=== PATIENT | male | born 1955 | race Caucasian/White ===

== ENCOUNTER → 2023-11-01 | Emergency (ER) | payer BC, OTHER ==
[~2023-11-01] MED LIST: LIDOCAINE 1% MPF 5 ML VIAL ONE; LIDOCAINE 2% W/EPI 1:200,000 MPF 20 ML VIAL IM ONE
--- OUTSIDE RECORDS SUMMARY | 2023-11-01 13:36 | XMS REPORT | Continuity of Care Document ---
Author Name Unknown Address [address] [facility] [place] [address] [facility] thconnect Address [address] [facility] [place] [address] Care Team Providers Care Job Placement Counselor Name Role Phone Jose Holloway NP Primary Care Physician [phone]- [phone] JOSE HOLLOWYA Attending Clinician Unavailab JOSE Doyle Attending Clinician Unavailab CHEN Robb Attending Clinician Unavailable 2, [facility] Attending Clinician Unavailable Doctor Unassigned, [place] Attending Clinician U MAULIK Calvo Attending Clinician Unavailable [facility] Attending Clinician Unavailable RACHEL FINNEGAN Attending Clinician Unagrey Finnegan MD, Rachel Mejía Attending Clinician [phone] ARIEL MCELROY Attending Clinician Unavailable BEULAH RODRIGES Attending Clinician Unavailable Payers Payer Name Policy Type Policy Number Effective Date Expirati on Date Source MEDICARE PART A \T\ B [id number] 2022 00:00:00 MEDICARE-PART B 5 [id number] 2022 00:00:00 BCBS 2 [id number] 2021 00:00:00 Problems Condition Name Condition Details Condition Category Status Onset Date Resolution Date Last Treatment Date Treating Clinician Comments Source Type 2 diabetes mellitus without complicati on, without long-term current use of insulin Type 2 diabetes mellitus without complicati on, without long-term current use of insulin Disease Active 2021-09 00:00: 00 [facility] Primary hypertensi on Primary hypertensi on Disease Active 2021-09 00:00: 00 [facility] No known active problems No known active problems Disease Yessica Dumont Allergies, Adverse Reactions, Alerts Allergy Name Allergy Type Status Severity Reaction(s) Onset Date Inactive Date Treating Clinician Comments Source NO KNOWN ALLERGIE S Drug Class Active [facility] Social History Social Habit Start Date Stop Date Quantity Comments Source [facility] of tobacco use Chews Tobacco [facility] Exposure to SARS-CoV-2 (event) Not sure Yessica medellin History of Social function 2023-07-29 00:00:00 2023-07-29 00:00:00 [facility] Alcohol intake 2023-07-29 00:00:00 2023-07-29 00:00:00 Current drinker of alcohol (finding) [facility] Tobacco use and exposure 2023-02-26 00:00:00 2023-02-26 00:00:00 User of smokeless tobacco [facility] Tobacco Comment 2023-02-26 00:00:00 2023-02-26 00:00:00 Patient chews Tobacco for 61 [facility] Alcohol Comment 2023-02-26 00:00:00 2023-02-26 00:00:00 socially [facility] Sex Assigned At 1955 00:00:00 1955 00:00:00 [facility] Smoking Status Start Date Stop Date Source Tobacco smoking consumption unknown [facility] Ex-smoker 2023-02-26 00:00:00 2023-02-26 00:00:00 [facility] Light tobacco smoker 2021-07-03 00:00:00 Yessica Dumont - External Medications Ordered Medication Name Filled Medication Name Start Date Stop Date Current Medication? Ordering Clinician Indication Dosage Frequency Signature (SIG) Comments Components Source Insulin Glargine (LANTUS SOLOSTAR U-100 INSULIN) 100 unit/mL (3 mL) injection 2022-09 00:00: 00 Yes [id number] Start 10 units daily sub-Q. Advance 2 units every 3 days, only if BG levels remain greater than 200. [facility] Insulin Glargine (LANTUS SOLOSTAR U-100 INSULIN) 100 unit/mL (3 mL) injection 2022-09 00:00: 00 Yes [id number] Start 10 units daily sub-Q. Advance 2 units every 3 days, only if BG levels remain greater than 200. [facility] glipiZIDE XL 10 mg 24 hr tablet 03-01 00:00: 00 Yes [id number] 10mg Take 1 tablet by mouth daily with breakfast. [facility] glipiZIDE XL 10 mg 24 hr tablet 03-01 00:00: 00 Yes [id number] 10mg Take 1 tablet by mouth daily with breakfast. [facility] glipiZIDE XL 10 mg 24 hr tablet 03-01 00:00: 00 Yes [id number] 10mg Take 1 tablet by mouth daily with breakfast. [facility] glipiZIDE XL 10 mg 24 hr tablet 03-01 00:00: 00 Yes [id number] 10mg Take 1 tablet by mouth daily with breakfast. [facility] glipiZIDE XL 10 mg 24 hr tablet 03-01 00:00: 00 Yes [id number] 10mg Take 1 tablet by mouth daily with breakfast. [facility] metoprolol ta-hydrochl orothiaz 50-25 mg per tablet 02-26 14:32: 02-26 00:00 :00 No 1{tbl} Take 1 tablet by mouth every morning. [facility] metoprolol ta-hydrochl orothiaz 50-25 mg per tablet 02-26 14:32: 02-26 00:00 :00 No 1{tbl} Take 1 tablet by mouth every morning. [facility] metoprolol ta-hydrochl orothiaz 50-25 mg per tablet 02-26 14:32: 17 02-26 00:00 :00 No 1{tbl} Take 1 tablet by mouth every morning. [facility] folic acid/multiv it-min/lute in (CENTRUM SILVER ORAL) 02-26 13:54: 51 Yes Take by mouth. [facility] ity [facility] aspirin 81 mg chewable tablet 02-26 13:54: 51 Yes 81mg Take 1 tablet by mouth in the morning. [facility] it[facility] folic acid/multiv it-min/lute in (CENTRUM SILVER ORAL) 02-26 13:54: 51 Yes Take by mouth. [facility] it[facility] aspirin 81 mg chewable tablet 02-26 13:54: 51 Yes 81mg Take 1 tablet by mouth in the morning. [facility] it[facility] folic acid/multiv it-min/lute in (CENTRUM SILVER ORAL) 02-26 13:54: 51 Yes Take by mouth. [facility] aspirin 81 mg chewable tablet 02-26 13:54: 51 Yes 81mg Take 1 tablet by mouth in the morning. [facility] folic acid/multiv it-min/lute in (CENTRUM SILVER ORAL) 02-26 13:54: 51 Yes Take by mouth. [facility] aspirin 81 mg chewable tablet 02-26 13:54: 51 Yes 81mg Take 1 tablet by mouth in the morning. [facility] folic acid/multiv it-min/lute in (CENTRUM SILVER ORAL) 02-26 13:54: 51 Yes Take by mouth. [facility] aspirin 81 mg chewable tablet 02-26 13:54: 51 Yes 81mg Take 1 tablet by mouth in the morning. [facility] folic acid/multiv it-min/lute in (CENTRUM SILVER ORAL) 02-26 13:54: 51 Yes Take by mouth. [facility] aspirin 81 mg chewable tablet 02-26 13:54: 51 Yes 81mg Take 1 tablet by mouth in the morning. [facility]/multiv it-min/lute in (CENTRUM SILVER ORAL) 02-26 13:54: 51 Yes Take by mouth. [facility] it[facility] aspirin 81 mg chewable tablet 02-26 13:54: 51 Yes 81mg Take 1 tablet by mouth in the morning. [facility] folic acid/multiv it-min/lute in (CENTRUM SILVER ORAL) 02-26 13:54: 51 Yes Take by mouth. [facility] aspirin 81 mg chewable tablet 02-26 13:54: 51 Yes 81mg Take 1 tablet by mouth in the morning. [facility] metoprolol succinate XL 50 mg 24 hr tablet 02-26 00:00: 00 Yes [id number] 50mg Take 1 tablet by mouth in the morning. [facility] metFORMIN 1,000 mg tablet 02-26 00:00: 00 Yes [id number] 1000mg Take 1 tablet by mouth in the morning and 1 tablet in the evening. [facility] atorvastati n 40 mg tablet 02-26 00:00: 00 Yes [id number] 40mg Take 1 tablet by mouth at bedtime. [facility] losartan 25 mg tablet 02-26 00:00: 00 Yes [id number] 25mg Take 1 tablet by mouth in the morning. [facility] metoprolol succinate XL 50 mg 24 hr tablet 02-26 00:00: 00 Yes [id number] 50mg Take 1 tablet by mouth in the morning. [facility] metFORMIN 1,000 mg tablet 02-26 00:00: 00 Yes [id number] 1000mg Take 1 tablet by mouth in the morning and 1 tablet in the evening. [facility] atorvastati n 40 mg tablet 02-26 00:00: 00 Yes [id number] 40mg Take 1 tablet by mouth at bedtime. [facility] losartan 25 mg tablet 02-26 00:00: 00 Yes [id number] 25mg Take 1 tablet by mouth in the morning. [facility] metoprolol succinate XL 50 mg 24 hr tablet 02-26 00:00: 00 Yes [id number] 50mg Take 1 tablet by mouth in the morning. [facility] metFORMIN 1,000 mg tablet 2022-0 20 00:00: 00 Yes [id number] 1000mg Take 1 tablet by mouth in the morning and 1 tablet in the evening. [facility] atorvastati n 40 mg tablet 2022-0 20 00:00: 00 Yes [id number] 40mg Take 1 tablet by mouth at bedtime. [facility] losartan 25 mg tablet 2022-0 20 00:00: 00 Yes [id number] 25mg Take 1 tablet by mouth in the morning. [facility] metoprolol succinate XL 50 mg 24 hr tablet 2022-0 02-26 00:00: 00 Yes [id number] 50mg Take 1 tablet by mouth in the morning. [facility] metFORMIN 1,000 mg tablet 0 02-26 00:00: 00 Yes [id number] 1000mg Take 1 tablet by mouth in the morning and 1 tablet in the evening. [facility] atorvastati n 40 mg tablet 2022-0 02-26 00:00: 00 Yes [id number] 40mg Take 1 tablet by mouth at bedtime. [facility] losartan 25 mg tablet 0 02-26 00:00: 00 Yes [id number] 25mg Take 1 tablet by mouth in the morning. [facility] metoprolol succinate XL 50 mg 24 hr tablet 2022-0 02-26 00:00: 00 Yes [id number] 50mg Take 1 tablet by mouth in the morning. [facility] metFORMIN 1,000 mg tablet 2022-0 02-26 00:00: 00 Yes [id number] 1000mg Take 1 tablet by mouth in the morning and 1 tablet in the evening. [facility] atorvastati n 40 mg tablet 2022-0 20 00:00: 00 Yes [id number] 40mg Take 1 tablet by mouth at bedtime. [facility] losartan 25 mg tablet 2022-0 20 00:00: 00 Yes [id number] 25mg Take 1 tablet by mouth in the morning. [facility] metoprolol succinate XL 50 mg 24 hr tablet 2022-0 20 00:00: 00 Yes [id number] 50mg Take 1 tablet by mouth in the morning. [facility] metFORMIN 1,000 mg tablet 2022-0 6-20 00:00: 00 Yes [id number] 1000mg Take 1 tablet by mouth in the morning and 1 tablet in the evening. [facility] atorvastati n 40 mg tablet 2022-0 6-20 00:00: 00 Yes [id number] 40mg Take 1 tablet by mouth at bedtime. [facility] losartan 25 mg tablet 2022-0 6-20 00:00: 00 Yes [id number] 25mg Take 1 tablet by mouth in the morning. [facility] metoprolol succinate XL 50 mg 24 hr tablet 2022-0 6-20 00:00: 00 Yes [id number] 50mg Take 1 tablet by mouth in the morning. [facility] metFORMIN 1,000 mg tablet 2022-0 6-20 00:00: 00 Yes [id number] 1000mg Take 1 tablet by mouth in the morning and 1 tablet in the evening. [facility] atorvastati n 40 mg tablet 2022-0 6-20 00:00: 00 Yes [id number] 40mg Take 1 tablet by mouth at bedtime. [facility] losartan 25 mg tablet 2022-0 6-20 00:00: 00 Yes [id number] 25mg Take 1 tablet by mouth in the morning. [facility] metoprolol succinate XL 50 mg 24 hr tablet 2022-0 6-20 00:00: 00 Yes [id number] 50mg Take 1 tablet by mouth in the morning. [facility] metFORMIN 1,000 mg tablet 2022-0 6-20 00:00: 00 Yes [id number] 1000mg Take 1 tablet by mouth in the morning and 1 tablet in the evening. [facility] atorvastati n 40 mg tablet 3-0 6-20 00:00: 00 Yes [id number] 40mg Take 1 tablet by mouth at bedtime. [facility] losartan 25 mg tablet 3-0 6-20 00:00: 00 Yes [id number] 25mg Take 1 tablet by mouth in the morning. [facility] metFORMIN 1,000 mg tablet 2022-0 4-06 00:00: 00 02-26 00:00 :00 No 1000mg Take 1 tablet by mouth in the morning and 1 tablet in the evening. [facility] metFORMIN 1,000 mg tablet 4-06 00:00: 00 02-26 00:00 :00 No 1000mg Take 1 tablet by mouth in the morning and 1 tablet in the evening. [facility] metFORMIN 1,000 mg tablet - 00:00: 00 02-26 00:00 :00 No 1000mg Take 1 tablet by mouth in the morning and 1 tablet in the evening. [facility] atorvastati n 40 mg tablet 4- 00:00: 00 02-26 00:00 :00 No 40mg Take 1 tablet by mouth at bedtime. [facility] atorvastati n 40 mg tablet - 00:00: 00 02-26 00:00 :00 No 40mg Take 1 tablet by mouth at bedtime. [facility] atorvastati n 40 mg tablet - 00:00: 00 02-26 00:00 :00 No 40mg Take 1 tablet by mouth at bedtime. [facility] METOPROLOL- HCTZ 50-25 MG oral Tablet 2021-09 09:18: 32 Yes 1{tbl} Take 1 tablet by mouth daily Yessica leavitt Losartan Potassium 25 MG oral Tablet 2021-09 00:00: 00 Yes [id number] 25mg Take 1 tablet (25 mg total) by mouth daily Yessica leavitt Metformin HCl 1000 MG oral Tablet 2021-09 00:00: 00 Yes [id number] 1000mg Take 1 tablet (1,000 mg total) by mouth in the morning and 1 tablet (1,000 mg total) in the evening. Take with meals. Yessica leavitt Tirzepatide (Mounjaro) 2.5 MG/0.5ML subcutaneou s Solution Pen-injecto r 2021-09 00:00: 00 Yes [id number] 2.5mg Inject 0.5 mL (2.5 mg total) into the skin once a week Yessica leavitt losartan 25 mg tablet 2021-09 00:00: 00 02-26 00:00 :00 No 25mg Take 1 tablet by mouth in the morning. [facility] losartan 25 mg tablet 2021-09 00:00: 00 02-26 00:00 :00 No 25mg Take 1 tablet by mouth in the morning. [facility] losartan 25 mg tablet 2021-09 00:00: 00 02-26 00:00 :00 No 25mg Take 1 tablet by mouth in the morning. [facility] Dulaglutide (Trulicity) 0.75 MG/0.5ML subcutaneou s Solution Pen-injecto r 2021-09 00:00: 00 08-27 00:00 :00 No [id number] .75mg Inject 0.75 mg into the skin once a week Yessica leavitt Trulicity 0.75 MG/0.5ML subcutaneou s Solution Pen-injecto r 2021-09 00:00: 00 08-27 00:00 :00 No [id number] ADMINISTER 0.75 MG UNDER THE SKIN 1 TIME A WEEK Yessica leavitt Metformin HCl 1000 MG oral Tablet 2021-09 00:00: 00 08-27 00:00 :00 No [id number] 1000mg Take 1 tablet (1,000 mg total) by mouth in the morning and 1 tablet (1,000 mg total) in the evening. Take with meals. Yessica leavitt Metoprolol Succinate 50 MG oral TABLET SR 24 HR 2021-09 00:00: 00 Yes Yessica leavitt metoprolol succinate XL 50 mg 24 hr tablet 2021-09 00:00: 00 02-26 00:00 :00 No 50mg Take 1 tablet by mouth in the morning. [facility] metoprolol succinate XL 50 mg 24 hr tablet 2021-09 00:00: 00 02-26 00:00 :00 No 50mg Take 1 tablet by mouth in the morning. [facility] metoprolol succinate XL 50 mg 24 hr tablet 2021-09 00:00: 00 02-26 00:00 :00 No 50mg Take 1 tablet by mouth in the morning. [facility] Losartan Potassium 25 MG oral Tablet 2020-09 08:39: 17 07-03 00:00 :00 No 25mg Take 25 mg by mouth daily Yessica Dumont METOPROLOL- HCTZ 50-25 MG oral Tablet 2020-09 08:08: 46 Yes 1{tbl} Take 1 tablet by mouth daily Yessica Dumont Losartan Potassium 25 MG oral Tablet 2020-09 00:00: 00 Yes [id number] 25mg Take 1 tablet (25 mg total) by mouth daily Yessica Dumont Metformin HCl 1000 MG oral Tablet 2020-09 00:00: 00 Yes [id number] 1000mg Take 1 tablet (1,000 mg total) by mouth 2 times daily (with meals) Yessica Dumont Dulaglutide (Trulicity) 0.75 MG/0.5ML subcutaneou s Solution Pen-injecto r 2020-09 00:00: 00 Yes [id number] .75mg Inject 0.75 mg into the skin once a week Yessica Dumont Losartan Potassium 25 MG oral Tablet 2020-09 00:00: 00 08-27 00:00 :00 No [id number] 25mg Take 1 tablet (25 mg total) by mouth daily Yessica Dumont - Externa l Metformin HCl 1000 MG oral Tablet 01-31 00:00: 00 07-03 00:00 :00 No TAKE 1 TABLET(100 0 MG) BY MOUTH TWICE DAILY WITH MEALS Yessica Dumont Immunizations Ordered Immunization Name Filled Immunization Name Date Status Comments Source SARS-COV-2 COVID-19 MODERNA 12+ YRS VACCINE 2020-11-12 00:00:00 Completed [facility] SARS-COV-2 COVID-19 MODERNA 12+ YRS VACCINE 2020-11-12 00:00:00 Completed [facility] SARS-COV-2 COVID-19 MODERNA 12+ YRS VACCINE 2020-11-12 00:00:00 Completed [facility] SARS-COV-2 COVID-19 MODERNA 12+ YRS VACCINE 2020-11-12 00:00:00 Completed [facility] SARS-COV-2 COVID-19 MODERNA 12+ YRS VACCINE 2020-11-12 00:00:00 Completed [facility] SARS-COV-2 COVID-19 MODERNA 12+ YRS VACCINE 2020-10-15 00:00:00 Completed [facility] SARS-COV-2 COVID-19 MODERNA 12+ YRS VACCINE 2020-10-15 00:00:00 Completed [facility] SARS-COV-2 COVID-19 MODERNA 12+ YRS VACCINE 2020-10-15 00:00:00 Completed [facility] SARS-COV-2 COVID-19 MODERNA 12+ YRS VACCINE 2020-10-15 00:00:00 Completed [facility] SARS-COV-2 COVID-19 MODERNA 12+ YRS VACCINE 2020-10-15 00:00:00 Completed [facility] SARS-COV-2 COVID-19 MODERNA 12+ YRS VACCINE Unknown Completed [facility] SARS-COV-2 COVID-19 MODERNA 12+ YRS VACCINE Unknown Completed [facility] SARS-COV-2 COVID-19 MODERNA 12+ YRS VACCINE Unknown Completed [facility] SARS-COV-2 COVID-19 MODERNA 12+ YRS VACCINE Unknown Completed [facility] SARS-COV-2 COVID-19 MODERNA 12+ YRS VACCINE Unknown Completed [facility] SARS-COV-2 COVID-19 MODERNA 12+ YRS VACCINE Unknown Completed [facility] SARS-COV-2 COVID-19 MODERNA 12+ YRS VACCINE Unknown Completed [facility] SARS-COV-2 COVID-19 MODERNA 12+ YRS VACCINE Unknown Completed [facility] Vital Signs Vital Name Observation Time Observation Value Comments S ource Systolic blood pressure 2023-07-29 19:35:00 139 mm[Hg] [facility] Diastolic blood pressure 2023-07-29 19:35:00 69 mm[Hg] [facility] Heart rate 2023-07-29 19:34:00 71 /min [facility] Body temperature 2023-07-29 19:34:00 37 Michelle [facility] Respiratory rate 2023-07-29 19:34:00 18 /min [facility] Body height 2023-07-29 19:34:00 190.5 cm [facility] Body weight 2023-07-29 19:34:00 127.234 kg [facility] BMI 2023-07-29 19:34:00 35.06 kg/m2 [facility] Oxygen saturation in Arterial blood by Pulse oximetry 2023-07-29 19:34:00 94 /min [facility] Systolic blood pressure 2023-07-29 19:30:00 139 mm[Hg] [facility] Diastolic blood pressure 2023-07-29 19:30:00 69 mm[Hg] [facility] Heart rate 2023-07-29 19:29:00 71 /min [facility] Body temperature 2023-07-29 19:29:00 37 Michelle [facility] Respiratory rate 2023-07-29 19:29:00 18 /min [facility] Body height 2023-07-29 19:29:00 190.5 cm [facility] Body weight 2023-07-29 19:29:00 127.234 kg [facility] BMI 2023-07-29 19:29:00 35.06 kg/m2 [facility] Oxygen saturation in Arterial blood by Pulse oximetry 2023-07-29 19:29:00 94 /min [facility] Systolic blood pressure 2023-02-26 18:51:00 140 mm[Hg] [facility] Diastolic blood pressure 2023-02-26 18:51:00 72 mm[Hg] [facility] Heart rate 2023-02-26 18:48:00 80 /min [facility] Body temperature 2023-02-26 18:48:00 36.5 Michelle [facility] Respiratory rate 2023-02-26 18:48:00 18 /min [facility] Body height 2023-02-26 18:48:00 185.4 cm [facility] Body weight 2023-02-26 18:48:00 125.737 kg [facility] BMI 2023-02-26 18:48:00 36.57 kg/m2 [facility] Oxygen saturation in Arterial blood by Pulse oximetry 2023-02-26 18:48:00 93 /min [facility] Systolic blood pressure 2022-08-27 15:14:00 151 mm[Hg] Yessica Seybo ld - External Diastolic blood pressure 2022-08-27 15:14:00 81 mm[Hg] Yessica Seybo ld - External Heart rate 2022-08-27 15:14:00 69 /min Kelse y Seybold - External Body temperature 2022-08-27 15:14:00 36.72 Michelle Yessica Seybold - External Respiratory rate 2022-08-27 15:14:00 14 /min Yessica Seybold - External Body height 2022-08-27 15:14:00 185.4 cm Prema ey Seybold - External Body weight 2022-08-27 15:14:00 131.543 kg Prema ey Seybold - External BMI 2022-08-27 15:14:00 38.26 kg/m2 Prema ey Seybold - External Oxygen saturation in Arterial blood by Pulse oximetry 2022-08-27 15:14:00 99 /min Yessica Seybo ld - External Systolic blood pressure 2021-07-03 13:07:00 140 mm[Hg] Yessica Seybo ld Diastolic blood pressure 2021-07-03 13:07:00 82 mm[Hg] Yessica Seybo ld Heart rate 2021-07-03 13:07:00 84 /min Kelse y Seybold Body temperature 2021-07-03 13:07:00 36.56 Michelle Yessica Seybold Respiratory rate 2021-07-03 13:07:00 14 /min Yessica Seybold Body height 2021-07-03 13:07:00 188 cm Prema ey Seybold Body weight 2021-07-03 13:07:00 120.112 kg Prema ey Seybold BMI 2021-07-03 13:07:00 34.00 kg/m2 Prema Dumont Oxygen saturation in Arterial blood by Pulse oximetry 2021-07-03 13:07:00 96 /min Yessica Estes ld Procedures Procedure Date / Time Performed Performing Clinician Source POCT HEMOGLOBIN A1C TEST 2023-07-29 00:00:00 Jose Holloway [facility] MICROALBUMIN URINE 2023-02-28 12:54:00 Chapis Holloway [facility] FREE T4 2023-02-28 12:52:00 Jose Holloway Un [facility] THYROID STIMULATING HORMONE 2023-02-28 12:52:00 Jose Holloway [facility] COMP. METABOLIC PANEL ([id number]) 2023-02-28 12:52:00 Jose Holloway [facility] LIPID PANEL ([id number])(TOTAL CHOLESTEROL, TRIGLYCERIDES, HDL) 2023-02-28 12:52:00 Jose Holloway [facility] CBC WITH DIFF 2023-02-28 12:52:00 [facility] GLYCOSYL[facility]EMO[facility] (A1C) 2023-02-28 12:52:00 Jose Holloway [facility] FREE T3 2023-02-28 12:52:00 Jose Holloway Un [facility] ASSIGNMENT OF BENEFITS 2023-02-26 18:32:23 Docto r Unassigned, [place] [facility] Encounters Start Date/Time End Date/Time Encounter Type Admission Type Attending Clinicians Care Facility Care Department Encounter ID Source 2023-11-27 09:30:00 2023-11-27 09:30:00 Outpatient R JOSE HOLLOWAY OGECHUKWU [facility] [id number] [facility] 2023-11-11 08:00:00 2023-11-11 08:00:00 Outpatient R [facility] [id number] [facility] 2023-07-29 13:30:00 2023-07-29 14:34:22 Office Visit Jose Holloway [facility] [id number] [facility] 2023-07-29 13:30:00 2023-07-29 14:34:22 Outpatient R JOSE HOLLOWAY OGECHUKWU [facility] [id number] [facility] 2023-07-29 11:30:00 2023-07-29 14:32:28 Office Visit Jose Holloway [facility] [id number] [facility] 2023-07-11 00:00:00 2023-07-11 00:00:00 Outpatient CHEN MILES [id number] Yessica Dumont 2023-02-28 08:00:00 2023-02-28 08:15:00 Ent Surgeon Visit 2, Adc Lab Jose Holloway [facility] [id number] [facility] 2023-02-28 08:00:00 2023-02-28 08:00:00 Outpatient R LUCY HOLLOWAYDickNimco HOLLOWAY JOSE [facility] [id number] [facility] 2023-02-26 14:00:00 2023-02-26 14:53:14 Outpatient R LUCY HOLLOWAYALDO JEWEL JOSE [facility] [id number] [facility] 2023-02-26 14:00:00 2023-02-26 14:53:14 Office Visit Jose Holloway [facility] 1..840.114 [id number] [facility] 2023-02-26 00:00:00 2023-02-26 00:00:00 Orders Only Doctor Unassigned, [place] [facility] 1..840.114 [id number] [id number] [facility] 2022-12-13 00:00:00 2022-12-13 00:00:00 Outpatient PREZASCHEN [id number] [facility] 2022-12-10 00:00:00 2022-12-10 00:00:00 Outpatient HUNDMAULIK Leavitt [id number] [facility] 2022-11-26 08:00:00 2022-11-26 08:00:00 Outpatient MAULIK PRESTON [id number] [facility] 2022-09-23 00:00:00 2022-09-23 00:00:00 Outpatient MAULIK PRESTON [id number] [facility] 2022-09-07 00:00:00 2022-09-07 00:00:00 Outpatient PREZASCHEN [id number] [facility] 2022-09-05 00:00:00 2022-09-05 00:00:00 Outpatient PREZASCHEN [id number] [facility] 2022-08-30 00:00:00 2022-08-30 00:00:00 Outpatient ABHISHEKLMAULIK [id number] [facility] 2022-08-27 10:15:00 2022-08-27 10:15:00 Outpatient CALEB SARMIENTO [id number] [facility] 2022-08-27 09:00:00 2022-08-27 09:00:00 Outpatient MAULIK PRESTON [id number] [facility] 2022-04-04 10:30:00 2022-04-04 10:30:00 Telemedici ne RACHEL FINNEGAN [id number] [facility] 2022-04-04 00:00:00 2022-04-04 00:00:00 Outpatient RACHEL FINNEGAN [id number] [facility] 2021-07-03 08:50:00 2021-07-03 08:50:00 Outpatient LAB90 YESSICA SARMIENTO [id number] [facility] 2021-07-03 08:01:27 2021-07-03 08:31:27 Office Visit Rachel Finnegan [id number] [facility] 2020-11-12 13:55:00 2020-11-12 13:55:00 Outpatient ARIEL WILLS [facility] [id number] [facility] 2020-10-15 14:00:00 2020-10-15 14:00:00 Outpatient ARIEL WILLS [facility] [id number] [facility] 2020-08-07 10:20:00 2020-08-07 10:20:00 Outpatient BEULAH FISHER [facility] [id number] [facility] Results Test Description Test Time Test Comments Results Result [facility] [id number] 19:56:00* Test Item Value Reference Range Interpretation Comme nts POCT HBA1C (test code = 4548-4) 10.3 % 4-6 A Lab Interpretation (test cod e = [id number]) Abnormal [facility]
[2023-11-01 14:18] LABS: Absolute Lymphocytes (CBC) 1.5 K/uL (0.7-4.9); Hematocrit 43.7 % (39.6-49.0); Lymphocytes % 16.8 % (15.3-44.8); MCV 87.4 fL (80-100); Platelets 199 thou/uL (152-406)
[2023-11-01 14:33] LABS: Potassium 3.9 mEq/L (3.5-5.1)
[2023-11-01 15:02] LABS: Protime INR 1.2
--- NOTE | 2023-11-01 15:54 | RAD REPORT ---
EXAM DESCRIPTION: RAD - Hand Right 3 View - 11/01/2023 3:02 pm CLINICAL HISTORY: laceration COMPARISON: No comparisons TECHNIQUE: Right hand, 3 views. FINDINGS: No fracture is identified. There is no dislocation or periosteal reaction noted. Scattered mild degenerative changes. Soft tissue irregularity and swelling along the fifth digit proximal phalanx and adjacent interdigita l web. IMPRESSION: Soft tissue abnormalities as above. No acute osseus abnormality. .
--- NOTE | 2023-11-01 16:00 | EDPHYS ---
Physician Documentation [facility] Name: Kamlesh Cedeño Age: 68 yrs Sex: Male : 1955 Arrival Date: 11/01/2023 Time: 13:33 Bed 7 Private MD: ED Physician Tom Kimble HPI: 11/01 13:50 This 68 yrs old Male presents to ER via Ambulatory with complaints of Laceration To cp Hand. 13:50 The patient has a laceration occurred at home, The injury was reached into hunting bag that contained knife. reports tetanus vaccination up to date. The laceration(s) is(are) located on the right hand. Onset: The symptoms/episode began/occurred just prior to arrival. Associated signs and symptoms: Pertinent positives: heavy bleeding, Pertinent negatives: dizziness, loss of consciousness, numbness distal to injury, suspected foreign body. Historical: - Allergies: 13:40 No Known Allergies; ll1 - PMHx: 13:40 Diabetes - NIDDM; Hypertension; A Fib (Hypertension); ll1 - Immunization history:: Adult Immunizations up to date, Last tetanus immunization: < 5 years ago. - Social history:: Smoking status: Patient reports use of chewing tobacco. ROS: 13:52 Constitutional: Negative for fever, cp 13:52 Cardiovascular: Negative for chest pain, 13:52 Respiratory: Negative for cough, shortness of breath, wheezing, 13:52 Skin: Positive for laceration(s), of the right hand, 13:52 Neuro: Negative for dizziness, numbness, weakness, 13:52 All other systems are negative, Exam: 14:20 Constitutional: The patient appears in no acute distress, alert, awake, cp non-diaphoretic, non-toxic, well developed, well nourished, 14:20 Head/Face: Normocephalic, atraumatic. cp 14:20 Chest/axilla: Inspection: normal, 14:20 Cardiovascular: Rate: normal, 14:20 Respiratory: the patient does not display signs of respiratory distress, Respirations: normal, no use of accessory muscles, no retractions, labored breathing, is not present, Breath sounds: are clear throughout, no decreased breath sounds, no stridor, no wheezing, 14:20 Musculoskeletal/extremity: Extremities: noted in the right hand: ROM: full active range of motion, Perfusion: the extremity is normally perfused throughout, Sensation intact. 14:20 Skin: injury, laceration(s), the wound is approximately 2 cm(s), of the dorsal side right hand between fourth and fifth fingers, that can be described as clean, no foreign body, linear, with moderate bleeding, Vital Signs: 13:38 BP 153 / 81; Pulse 82; Resp 18; Temp 97.5; Pulse Ox 94% on R/A; Weight 127.01 kg; ll1 Height 6 ft. 2 in. ; Pain 0/10; 15:18 BP 136 / 81; ld1 13:38 Body Mass Index 35.95 (127.01 kg, 187.96 cm) ll1 13:38 Pain Scale: Adult ll1 Laceration: 15:18 Wound Repair of 2cm ( 0.8in ) subcutaneous laceration to dorsal side right hand between cp fourth and fifth fingers. Linear shaped.. Distal neuro/vascular/tendon intact. Anesthesia: Wound infiltrated with 4 mls of 2% lidocaine. Wound prep: Moderate cleansing by me, Wound irrigation by me. Skin closed with 3 4-0 Prolene using interrupted sutures and sterile technique. Dressed with 4x4's, coban. Patient tolerated well. MDM: 13:42 Patient medically screened. 14:00 Differential diagnosis: superficial laceration, tendon injury, vascular injury. 16:00 Data reviewed: vital signs, nurses notes, radiologic studies, plain films. cp 16:00 I considered the following discharge prescriptions or medication management in the emergency department Medications were administered in the Emergency Department. See MAR. Independent interpretation of the following test(s) in the Emergency Department X-Ray: My interpretation is images of right hand negative for fracture. Care significantly affected by the following chronic conditions: Diabetes, Hypertension. Counseling: I had a detailed discussion with the patient and/or guardian regarding the historical points, exam findings, and any diagnostic results supporting the discharge/admit diagnosis, lab results, radiology results, the need for outpatient follow up, a family practitioner, to return to the emergency department if symptoms worsen or persist or if there are any questions or concerns that arise at home. Response to treatment: the patient's symptoms have markedly improved after treatment, and as a result, I will discharge patient. 11/01 13:45 Order name: Basic Metabolic Panel; Complete Time: 14:52 11/01 14:52 Interpretation: Normal except: GLUC 266. cp 11/01 13:45 Order name: CBC with Diff; Complete Time: 14:52 cp 11/01 14:53 Interpretation: Reviewed. cp 11/01 13:45 Order name: PT-INR; Complete Time: 15:13 cp 11/01 15:13 Interpretation: Reviewed. cp 11/01 13:45 Order name: Ptt, Activated; Complete Time: 15:13 cp 11/01 15:01 Order name: Hand Right 3 View; Complete Time: 15:59 EDMS 11/01 16:00 Interpretation: Report reviewed. cp 11/01 13:45 Order name: Labs collected and sent; Complete Time: 13:58 cp 11/01 13:54 Order name: Dressing - Wound; Complete Time: 14:04 cp 11/01 13:54 Order name: Gloves, Sterile; Complete Time: 14:04 cp 11/01 13:54 Order name: Setup Suture Tray; Complete Time: 13:59 cp Administered Medications: 13:58 Not Given (Patient Refused): fentanyl (pf)25 mcg IVP once ld1 Disposition Summary: 11/01/23 16:00 Discharge Ordered Notes: Location: Home cp Problem: new cp Symptoms: have improved cp Condition: Stable cp Diagnosis - Laceration without foreign body of right hand, initial encounter cp Followup: cp - With: Private Physician - When: 10 - 14 days - Reason: Staple/Suture removal Discharge Instructions: - Discharge Summary Sheet cp - Laceration Care, Adult cp - Sutured Wound Care cp Forms: - Medication Reconciliation Form cp - Thank You Letter cp - Antibiotic Education cp - Prescription Opioid Use cp - Patient Portal Instructions cp - Leadership Thank You Letter cp Prescriptions: - Cephalexin 500 mg Oral Capsule - take 1 capsule ORAL route every 8 hours for 10 days; 30 capsule; Refills: 0, cp Product Selection Permitted - Ibuprofen 800 mg Oral Tablet - take 1 tablet ORAL route every 8 hours As needed take with food; 30 tablet; cp Refills: 0, Product Selection Permitted Signatures: Dispatcher [employer] EDMS Wai Madsen PA PA cp Lewis, Lynsay RN RN ll1 Gladys Tiwari RN RN ld1 Corrections: (The following items were deleted from the chart) 15:01 13:46 Hand Left 3 View+RAD.RAD.BRZ ordered. EDMS EDMS 15: 13:50 The laceration(s) is(are) located on the left hand, cp cp 15: 13:52 Skin: Positive for laceration(s), of the left hand, cp cp
--- NOTE | 2023-11-01 16:00 | ER ---
Nurse's Notes [facility] Name: Kamlesh Cedeño Age: 68 yrs Sex: Male : 1955 Arrival Date: 11/01/2023 Time: 13:33 Bed 7 Private MD: Diagnosis: Laceration without foreign body of right hand, initial encounter Presentation: 11/01 13:38 Chief complaint: Patient states: Reached into hunting bag 20 min [employer]. Cut R hand on ll1 sharp knife in bag. No blood thinners, just baby aspirin daily. Dressing in place, son reports large amount of blood loss. Coronavirus screen: Client denies travel out of the [place] in the last 14 days. At this time, the client does not indicate any symptoms associated with coronavirus-19. Ebola Screen: Patient denies travel to an Ebola-affected area in the 21 days before illness onset. Complicating Factors: There are no complicating factors for this patient. Initial Sepsis Screen: Does the patient meet any 2 criteria? No. Patient's initial sepsis screen is negative. Does the patient have a suspected source of infection? Yes: Skin breakdown/wound. Risk Assessment: Do you want to hurt yourself or someone else? Patient reports no desire to harm self or others. Onset of symptoms was November 01, 2023. 13:38 Method Of Arrival: Ambulatory ll1 13:38 Acuity: QUENTIN 3 ll1 Triage Assessment: 13:40 General: Appears distressed, uncomfortable, Behavior is calm, cooperative, appropriate ll1 for age. Pain: Denies pain. Derm: Reports laceration R hand. Injury Description: Laceration. Historical: - Allergies: 13:40 No Known Allergies; ll1 - PMHx: 13:40 Diabetes - NIDDM; Hypertension; A Fib (Hypertension); ll1 - Immunization history:: Adult Immunizations up to date, Last tetanus immunization: < 5 years ago. - Social history:: Smoking status: Patient reports use of chewing tobacco. Screenin:09 [facility] ED Fall Risk Assessment (Adult) History of falling in the last 3 months, ld1 including since admission No falls in past 3 months (0 pts). Abuse screen: Denies threats or abuse. Denies injuries from another. Nutritional screening: No deficits noted. Tuberculosis screening: No symptoms or risk factors identified. Assessment: 15:00 General: Appears in no apparent distress. comfortable, Behavior is calm, cooperative, ld1 appropriate for age. 15:00 Pain: Complains of pain in right hand Pain does not radiate. Pain currently is 6 out of ld1 10 on a pain scale. Quality of pain is described as throbbing. Neuro: Level of Consciousness is awake, alert, obeys commands, Oriented to person, place, time, situation. Cardiovascular: Capillary refill < 3 seconds Patient's skin is warm and dry. Respiratory: Airway is patent Respiratory effort is even, unlabored. GI: Abdomen is round non-distended. : No signs and/or symptoms were reported regarding the genitourinary system. EENT: No signs and/or symptoms were reported regarding the EENT system. Derm: No signs and/or symptoms reported regarding the dermatologic system. Musculoskeletal: No signs and/or symptoms reported regarding the musculoskeletal system. Injury Description: Laceration sustained to palm of right hand is clean, is bleeding a small amount. 15:25 Reassessment: ERP at bedside providing care to right hand. ld1 Vital Signs: 13:38 BP 153 / 81; Pulse 82; Resp 18; Temp 97.5; Pulse Ox 94% on R/A; Weight 127.01 kg; ll1 Height 6 ft. 2 in. ; Pain 0/10; 15:18 BP 136 / 81; ld1 13:38 Body Mass Index 35.95 (127.01 kg, 187.96 cm) ll1 13:38 Pain Scale: Adult ll1 ED Course: 13:34 Patient arrived in ED. mr 13:40 Triage completed. ll1 13:41 Arm band placed on Patient placed in an exam room, on a stretcher. ll1 13:42 Wai Madsen PA is PHCP. cp 13:42 Tom Kimble MD is Attending Physician. cp 13:53 Chris Fagan RN is Primary Nurse. rs5 13:58 Inserted saline lock: 20 gauge in right antecubital area, using aseptic technique. ld1 Blood collected. 15:02 Hand Right 3 View In Process Unspecified. EDMS 16:10 Assist provider with laceration repair on right hand using sutures. Set up tray. ld1 Performed by Wai CANAS Dressed with 4X4s, Patient tolerated well. IV discontinued, intact, bleeding controlled, No redness/swelling at site. 16:11 Patient has correct armband on for positive identification. Placed in gown. Bed in low ld1 position. Call light in reach. Side rails up X2. manager monitoring on. Pulse ox on. NIBP on. Door closed. Noise minimized. Warm blanket given. 16:12 Provided Education on: Antibiotic use. ld1 Administered Medications: 13:58 Not Given (Patient Refused): fentanyl (pf)25 mcg IVP once ld1 Medication: 16:11 VIS not applicable for this client. ld1 Outcome: 16:00 Discharge ordered by . renée 16:07 Patient left the ED. ld1 16:11 Discharged to home ambulatory, with family, ld1 16:11 Condition: stable 16:11 Discharge instructions given to patient, family, Instructed on discharge instructions, follow up and referral plans. medication usage, Demonstrated understanding of instructions, follow-up care, medications, Prescriptions given X 2, Signatures: Dispatcher [employer] EDMS Gianna Calabrese, Reg Reg mr Wai Madsen, FLORESITA PA Cecy Orellana RN RN ll1 Gladys Tiwari RN RN ld1 Chris Fagan, ROSE RN rs5
[2023-11-01 16:49] VITALS: BP 136/81; TEMP 97.5; O2SAT 94
== END ==
LOC: ER 13:33
PROC: 0HQFXZZ Repair Right Hand Skin, External Approach (ICD-10-PCS; principal; 2023-11-01)
DX: S61.411A Laceration without foreign body of right hand, initial encounter (principal); F17.220 Nicotine dependence, chewing tobacco, uncomplicated
CPT/HCPCS: 36415; 80048; 85025; 85610; 85730; J2001

== ENCOUNTER → 2023-11-14 | Emergency (ER) | payer BC, OTHER ==
--- OUTSIDE RECORDS SUMMARY | 2023-11-14 13:29 | XMS REPORT | Continuity of Care Document ---
Author Name Unknown Address [address] [facility] [address] [place] [address] [facility] thconnect Address [address] [facility] [address] [place] [address] Care Team Providers Care Trouble Operator Name Role Phone JOSE HOLLOWAY Primary Care Physician JOSE Robles Attending Clinician UnavailJOSE Martino Attending Clinician Unavailab le 2, [facility] Attending Clinician Unavailable CHEN MILES Attending Clinician Unavailable Doctor Unassigned, [place] Attending Clinician U MAULIK Calvo Attending Clinician Unavailable [facility] Attending Clinician Unavailable RACHEL FINNEGAN Attending Clinician Magaly Finnegan MD, Rachel Mejía Attending Clinician [phone] ARIEL MCELROY Attending Clinician Unavailable BEULAH RODRIGES Attending Clinician Unavailable Payers Payer Name Policy Type Policy Number Effective Date Expirati on Date Source MEDICARE PART A \\T\\ B [id number] 2022 00:00:00 BCBS [facility] [id number] 2023 00:00:00 MEDICARE-PART B 5 [id number] 2022 00:00:00 BCBS 2 [id number] 2021 00:00:00 Problems Condition Name Condition Details Condition Category Status Onset Date Resolution Date Last Treatment Date Treating Clinician Comments Source Type 2 diabetes mellitus without complicati on, without long-term current use of insulin Type 2 diabetes mellitus without complicati on, without long-term current use of insulin Disease Active 2021-09 00:00: 00 [facility] Primary hypertensi on Primary hypertensi on Disease Active 2021-09 00:00: 00 [facility] No known active problems No known active problems Disease Yessica Dumont Allergies, Adverse Reactions, Alerts Allergy Name Allergy Type Status Severity Reaction(s) Onset Date Inactive Date Treating Clinician Comments Source NO KNOWN ALLERGIE S Drug Class Active [facility] Social History Social Habit Start Date Stop Date Quantity Comments Source [facility] of tobacco use Chews Tobacco [facility] Exposure to SARS-CoV-2 (event) Not sure Yessica medellin History of Social function 2023-07-29 00:00:00 2023-07-29 00:00:00 [facility] Alcohol intake 2023-07-29 00:00:00 2023-07-29 00:00:00 Current drinker of alcohol (finding) [facility] Tobacco use and exposure 2023-02-26 00:00:00 2023-02-26 00:00:00 User of smokeless tobacco [facility] Tobacco Comment 2023-02-26 00:00:00 2023-02-26 00:00:00 Patient chews Tobacco for 61 [facility] Alcohol Comment 2023-02-26 00:00:00 2023-02-26 00:00:00 socially [facility] Sex Assigned At 1955 00:00:00 1955 00:00:00 [facility] Smoking Status Start Date Stop Date Source Tobacco smoking consumption unknown [facility] Ex-smoker 2023-02-26 00:00:00 2023-02-26 00:00:00 [facility] Light tobacco smoker 2021-07-03 00:00:00 Yessica Dumont - External Medications Ordered Medication Name Filled Medication Name Start Date Stop Date Current Medication? Ordering Clinician Indication Dosage Frequency Signature (SIG) Comments Components Source Insulin Glargine (LANTUS SOLOSTAR U-100 INSULIN) 100 unit/mL (3 mL) injection 2022-09 00:00: 00 Yes [id number] Start 10 units daily sub-Q. Advance 2 units every 3 days, only if BG levels remain greater than 200. [facility] Insulin Glargine (LANTUS SOLOSTAR U-100 INSULIN) 100 unit/mL (3 mL) injection 2022-09 00:00: 00 Yes [id number] Start 10 units daily sub-Q. Advance 2 units every 3 days, only if BG levels remain greater than 200. [facility] Insulin Glargine (LANTUS SOLOSTAR U-100 INSULIN) 100 unit/mL (3 mL) injection 2022-09 00:00: 00 Yes [id number] Start 10 units daily sub-Q. Advance 2 units every 3 days, only if BG levels remain greater than 200. [facility] glipiZIDE XL 10 mg 24 hr tablet 03-01 00:00: 00 Yes [id number] 10mg Take 1 tablet by mouth daily with breakfast. [facility] glipiZIDE XL 10 mg 24 hr tablet 03-01 00:00: 00 Yes [id number] 10mg Take 1 tablet by mouth daily with breakfast. [facility] glipiZIDE XL 10 mg 24 hr tablet 03-01 00:00: 00 Yes [id number] 10mg Take 1 tablet by mouth daily with breakfast. [facility] glipiZIDE XL 10 mg 24 hr tablet 03-01 00:00: 00 Yes [id number] 10mg Take 1 tablet by mouth daily with breakfast. [facility] glipiZIDE XL 10 mg 24 hr tablet 03-01 00:00: 00 Yes [id number] 10mg Take 1 tablet by mouth daily with breakfast. [facility] glipiZIDE XL 10 mg 24 hr tablet 03-01 00:00: 00 Yes [id number] 10mg Take 1 tablet by mouth daily with breakfast. [facility] metoprolol ta-hydrochl orothiaz 50-25 mg per tablet 02-26 14:32: 02-26 00:00 :00 No 1{tbl} Take 1 tablet by mouth every morning. [facility] metoprolol ta-hydrochl orothiaz 50-25 mg per tablet 02-26 14:32: 17 02-26 00:00 :00 No 1{tbl} Take 1 tablet by mouth every morning. [facility] metoprolol ta-hydrochl orothiaz 50-25 mg per tablet 02-26 14:32: 17 02-26 00:00 :00 No 1{tbl} Take 1 tablet by mouth every morning. [facility] folic acid/multiv it-min/lute in (CENTRUM SILVER ORAL) 02-26 13:54: 51 Yes Take by mouth. [facility] aspirin 81 mg chewable tablet 02-26 13:54: 51 Yes 81mg Take 1 tablet by mouth in the morning. [facility] folic acid/multiv it-min/lute in (CENTRUM SILVER ORAL) 02-26 13:54: 51 Yes Take by mouth. [facility] aspirin 81 mg chewable tablet 02-26 13:54: 51 Yes 81mg Take 1 tablet by mouth in the morning. [facility] folic acid/multiv it-min/lute in (CENTRUM SILVER ORAL) 02-26 13:54: 51 Yes Take by mouth. [facility] aspirin 81 mg chewable tablet 02-26 13:54: 51 Yes 81mg Take 1 tablet by mouth in the morning. [facility] folic acid/multiv it-min/lute in (CENTRUM SILVER ORAL) 02-26 13:54: 51 Yes Take by mouth. [facility] aspirin 81 mg chewable tablet 02-26 13:54: 51 Yes 81mg Take 1 tablet by mouth in the morning. [facility] folic acid/multiv it-min/lute in (CENTRUM SILVER ORAL) 02-26 13:54: 51 Yes Take by mouth. [facility] aspirin 81 mg chewable tablet 02-26 13:54: 51 Yes 81mg Take 1 tablet by mouth in the morning. [facility] folic acid/multiv it-min/lute in (CENTRUM SILVER ORAL) 02-26 13:54: 51 Yes Take by mouth. [facility] aspirin 81 mg chewable tablet 02-26 13:54: 51 Yes 81mg Take 1 tablet by mouth in the morning. [facility] folic acid/multiv it-min/lute in (CENTRUM SILVER ORAL) 02-26 13:54: 51 Yes Take by mouth. [facility] aspirin 81 mg chewable tablet 02-26 13:54: 51 Yes 81mg Take 1 tablet by mouth in the morning. [facility] folic acid/multiv it-min/lute in (CENTRUM SILVER ORAL) 02-26 13:54: 51 Yes Take by mouth. [facility] aspirin 81 mg chewable tablet 02-26 13:54: 51 Yes 81mg Take 1 tablet by mouth in the morning. [facility] folic acid/multiv it-min/lute in (CENTRUM SILVER ORAL) 02-26 13:54: 51 Yes Take by mouth. [facility] aspirin 81 mg chewable tablet 02-26 13:54: 51 Yes 81mg Take 1 tablet by mouth in the morning. [facility] metoprolol succinate XL 50 mg 24 hr tablet 02-26 00:00: 00 Yes [id number] 50mg Take 1 tablet by mouth in the morning. [facility] metFORMIN 1,000 mg tablet 02-26 00:00: 00 Yes [id number] 1000mg Take 1 tablet by mouth in the morning and 1 tablet in the evening. [facility] atorvastati n 40 mg tablet 02-26 00:00: 00 Yes [id number] 40mg Take 1 tablet by mouth at bedtime. [facility] losartan 25 mg tablet 02-26 00:00: 00 Yes [id number] 25mg Take 1 tablet by mouth in the morning. [facility] metoprolol succinate XL 50 mg 24 hr tablet 2022-0 20 00:00: 00 Yes [id number] 50mg Take 1 tablet by mouth in the morning. [facility] metFORMIN 1,000 mg tablet 2022-0 20 00:00: 00 Yes [id number] 1000mg Take 1 tablet by mouth in the morning and 1 tablet in the evening. [facility] atorvastati n 40 mg tablet 2022-0 20 00:00: 00 Yes [id number] 40mg Take 1 tablet by mouth at bedtime. [facility] losartan 25 mg tablet 2022-0 20 00:00: 00 Yes [id number] 25mg Take 1 tablet by mouth in the morning. [facility] metoprolol succinate XL 50 mg 24 hr tablet 2022-0 20 00:00: 00 Yes [id number] 50mg Take 1 tablet by mouth in the morning. [facility] metFORMIN 1,000 mg tablet 2022-0 20 00:00: 00 Yes [id number] 1000mg Take 1 tablet by mouth in the morning and 1 tablet in the evening. [facility] atorvastati n 40 mg tablet 2022-0 20 00:00: 00 Yes [id number] 40mg Take 1 tablet by mouth at bedtime. [facility] losartan 25 mg tablet 2022-0 20 00:00: 00 Yes [id number] 25mg Take 1 tablet by mouth in the morning. [facility] metoprolol succinate XL 50 mg 24 hr tablet 2022-0 20 00:00: 00 Yes [id number] 50mg Take 1 tablet by mouth in the morning. [facility] metFORMIN 1,000 mg tablet 2022-0 20 00:00: 00 Yes [id number] 1000mg Take 1 tablet by mouth in the morning and 1 tablet in the evening. [facility] atorvastati n 40 mg tablet 3-0 -20 00:00: 00 Yes [id number] 40mg Take 1 tablet by mouth at bedtime. [facility] losartan 25 mg tablet 2022-0 6-20 00:00: 00 Yes [id number] 25mg Take 1 tablet by mouth in the morning. [facility] metoprolol succinate XL 50 mg 24 hr tablet 2022-0 20 00:00: 00 Yes [id number] 50mg Take 1 tablet by mouth in the morning. [facility] metFORMIN 1,000 mg tablet 2022-0 -20 00:00: 00 Yes [id number] 1000mg Take 1 tablet by mouth in the morning and 1 tablet in the evening. [facility] atorvastati n 40 mg tablet 2022-0 20 00:00: 00 Yes [id number] 40mg Take 1 tablet by mouth at bedtime. [facility] losartan 25 mg tablet 2022-0 -20 00:00: 00 Yes [id number] 25mg Take 1 tablet by mouth in the morning. [facility] metoprolol succinate XL 50 mg 24 hr tablet 2022-0 02-26 00:00: 00 Yes [id number] 50mg Take 1 tablet by mouth in the morning. [facility] metFORMIN 1,000 mg tablet 2022-0 02-26 00:00: 00 Yes [id number] 1000mg Take 1 tablet by mouth in the morning and 1 tablet in the evening. [facility] atorvastati n 40 mg tablet 2022-0 20 00:00: 00 Yes [id number] 40mg Take 1 tablet by mouth at bedtime. [facility] losartan 25 mg tablet 2022-0 20 00:00: 00 Yes [id number] 25mg Take 1 tablet by mouth in the morning. [facility] metoprolol succinate XL 50 mg 24 hr tablet 2022-0 20 00:00: 00 Yes [id number] 50mg Take 1 tablet by mouth in the morning. [facility] metFORMIN 1,000 mg tablet 2022-0 -20 00:00: 00 Yes [id number] 1000mg Take 1 tablet by mouth in the morning and 1 tablet in the evening. [facility] atorvastati n 40 mg tablet 3-0 -20 00:00: 00 Yes [id number] 40mg Take 1 tablet by mouth at bedtime. [facility] losartan 25 mg tablet 3-0 6-20 00:00: 00 Yes [id number] 25mg Take 1 tablet by mouth in the morning. [facility] metoprolol succinate XL 50 mg 24 hr tablet 2022-0 6-20 00:00: 00 Yes [id number] 50mg Take 1 tablet by mouth in the morning. [facility] metFORMIN 1,000 mg tablet 2022-0 6-20 00:00: 00 Yes [id number] 1000mg Take 1 tablet by mouth in the morning and 1 tablet in the evening. [facility] atorvastati n 40 mg tablet 2022-0 6-20 00:00: 00 Yes [id number] 40mg Take 1 tablet by mouth at bedtime. [facility] losartan 25 mg tablet 2022-0 6-20 00:00: 00 Yes [id number] 25mg Take 1 tablet by mouth in the morning. [facility] metoprolol succinate XL 50 mg 24 hr tablet 2022-0 -20 00:00: 00 Yes [id number] 50mg Take 1 tablet by mouth in the morning. [facility] metFORMIN 1,000 mg tablet 2022-0 6-20 00:00: 00 Yes [id number] 1000mg Take 1 tablet by mouth in the morning and 1 tablet in the evening. [facility] atorvastati n 40 mg tablet 2022-0 -20 00:00: 00 Yes [id number] 40mg Take 1 tablet by mouth at bedtime. [facility] losartan 25 mg tablet 2022-0 6-20 00:00: 00 Yes [id number] 25mg Take 1 tablet by mouth in the morning. [facility] metFORMIN 1,000 mg tablet 3-0 4-06 00:00: 00 02-26 00:00 :00 No 1000mg Take 1 tablet by mouth in the morning and 1 tablet in the evening. [facility] metFORMIN 1,000 mg tablet 3-0 4-06 00:00: 00 02-26 00:00 :00 No 1000mg Take 1 tablet by mouth in the morning and 1 tablet in the evening. [facility] metFORMIN 1,000 mg tablet 12-13 00:00: 00 02-26 00:00 :00 No 1000mg Take 1 tablet by mouth in the morning and 1 tablet in the evening. [facility] atorvastati n 40 mg tablet 4 00:00: 00 02-26 00:00 :00 No 40mg Take 1 tablet by mouth at bedtime. [facility] atorvastati n 40 mg tablet 12-11 00:00: 00 02-26 00:00 :00 No 40mg Take 1 tablet by mouth at bedtime. [facility] atorvastati n 40 mg tablet 12-11 00:00: 00 02-26 00:00 :00 No 40mg Take 1 tablet by mouth at bedtime. [facility] METOPROLOL- HCTZ 50-25 MG oral Tablet 2021-09 09:18: 32 Yes 1{tbl} Take 1 tablet by mouth daily Yessica leavitt Losartan Potassium 25 MG oral Tablet 2021-09 00:00: 00 Yes [id number] 25mg Take 1 tablet (25 mg total) by mouth daily Yessica leavitt Metformin HCl 1000 MG oral Tablet 2021-09 00:00: 00 Yes [id number] 1000mg Take 1 tablet (1,000 mg total) by mouth in the morning and 1 tablet (1,000 mg total) in the evening. Take with meals. Yessica leavitt Tirzepatide (Mounjaro) 2.5 MG/0.5ML subcutaneou s Solution Pen-injecto r 2021-09 00:00: 00 Yes [id number] 2.5mg Inject 0.5 mL (2.5 mg total) into the skin once a week Yessica leavitt losartan 25 mg tablet 2021-09 00:00: 00 02-26 00:00 :00 No 25mg Take 1 tablet by mouth in the morning. [facility] losartan 25 mg tablet 2021-09 00:00: 00 02-26 00:00 :00 No 25mg Take 1 tablet by mouth in the morning. [facility] losartan 25 mg tablet 2021-09 00:00: 00 02-26 00:00 :00 No 25mg Take 1 tablet by mouth in the morning. [facility] Dulaglutide (Trulicity) 0.75 MG/0.5ML subcutaneou s Solution Pen-injecto r 2021-09 00:00: 00 08-27 00:00 :00 No [id number] .75mg Inject 0.75 mg into the skin once a week Yessica leavitt Trulicity 0.75 MG/0.5ML subcutaneou s Solution Pen-injecto r 2021-09 00:00: 00 08-27 00:00 :00 No [id number] ADMINISTER 0.75 MG UNDER THE SKIN 1 TIME A WEEK Yessica leavitt Metformin HCl 1000 MG oral Tablet 2021-09 00:00: 00 08-27 00:00 :00 No [id number] 1000mg Take 1 tablet (1,000 mg total) [...] 1 tablet by mouth in the morning. [facility] metoprolol succinate XL 50 mg 24 hr tablet 2021-09 00:00: 00 02-26 00:00 :00 No 50mg Take 1 tablet by mouth in the morning. [facility] metoprolol succinate XL 50 mg 24 hr tablet 2021-09 00:00: 00 02-26 00:00 :00 No 50mg Take 1 tablet by mouth in the morning. [facility] Losartan Potassium 25 MG oral Tablet 2020-09 08:39: 17 07-03 00:00 :00 No 25mg Take 25 mg by mouth daily Yessica Dumont METOPROLOL- HCTZ 50-25 MG oral Tablet 2020-09 08:08: 46 Yes 1{tbl} Take 1 tablet by mouth daily Yessica Dumont Losartan Potassium 25 MG oral Tablet 2020-09 00:00: 00 Yes [id number] 25mg Take 1 tablet (25 mg total) by mouth daily Yessica Dumont Metformin HCl 1000 MG oral Tablet 2020-09 00:00: 00 Yes [id number] 1000mg Take 1 tablet (1,000 mg total) by mouth 2 times daily (with meals) Yessica Dumont Dulaglutide (Trulicity) 0.75 MG/0.5ML subcutaneou s Solution Pen-injecto r 2020-09 00:00: 00 Yes [id number] .75mg Inject 0.75 mg into the skin once a week Yessica Dumont Losartan Potassium 25 MG oral Tablet 2020-09 00:00: 00 08-27 00:00 :00 No [id number] 25mg Take 1 tablet (25 mg total) by mouth daily Yessica Dumont - Externa l Metformin HCl 1000 MG oral Tablet 01-31 00:00: 00 07-03 00:00 :00 No TAKE 1 TABLET(100 0 MG) BY MOUTH TWICE DAILY WITH MEALS Yessica Dumont Immunizations Ordered Immunization Name Filled Immunization Name Date Status Comments Source SARS-COV-2 COVID-19 MODERNA 12+ YRS VACCINE 2020-11-12 00:00:00 Completed [facility] SARS-COV-2 COVID-19 MODERNA 12+ YRS VACCINE 2020-11-12 00:00:00 Completed [facility] SARS-COV-2 COVID-19 MODERNA 12+ YRS VACCINE 2020-11-12 00:00:00 Completed [facility] SARS-COV-2 COVID-19 MODERNA 12+ YRS VACCINE 2020-11-12 00:00:00 Completed [facility] SARS-COV-2 COVID-19 MODERNA 12+ YRS VACCINE 2020-11-12 00:00:00 Completed [facility] SARS-COV-2 COVID-19 MODERNA 12+ YRS VACCINE 2020-10-15 00:00:00 Completed [facility] SARS-COV-2 COVID-19 MODERNA 12+ YRS VACCINE 2020-10-15 00:00:00 Completed [facility] SARS-COV-2 COVID-19 MODERNA 12+ YRS VACCINE 2020-10-15 00:00:00 Completed [facility] SARS-COV-2 COVID-19 MODERNA 12+ YRS VACCINE 2020-10-15 00:00:00 Completed [facility] SARS-COV-2 COVID-19 MODERNA 12+ YRS VACCINE 2020-10-15 00:00:00 Completed [facility] SARS-COV-2 COVID-19 MODERNA 12+ YRS VACCINE Unknown Completed [facility] SARS-COV-2 COVID-19 MODERNA 12+ YRS VACCINE Unknown Completed [facility] SARS-COV-2 COVID-19 MODERNA 12+ YRS VACCINE Unknown Completed [facility] SARS-COV-2 COVID-19 MODERNA 12+ YRS VACCINE Unknown Completed [facility] SARS-COV-2 COVID-19 MODERNA 12+ YRS VACCINE Unknown Completed [facility] SARS-COV-2 COVID-19 MODERNA 12+ YRS VACCINE Unknown Completed [facility] SARS-COV-2 COVID-19 MODERNA 12+ YRS VACCINE Unknown Completed [facility] SARS-COV-2 COVID-19 MODERNA 12+ YRS VACCINE Unknown Completed [facility] SARS-COV-2 COVID-19 MODERNA 12+ YRS VACCINE Unknown Completed [facility] SARS-COV-2 COVID-19 MODERNA 12+ YRS VACCINE Unknown Completed [facility] Vital Signs Vital Name Observation Time Observation Value Comments S ource Systolic blood pressure 2023-07-29 19:35:00 139 mm[Hg] [facility] Diastolic blood pressure 2023-07-29 19:35:00 69 mm[Hg] [facility] Heart rate 2023-07-29 19:34:00 71 /[facility] 2023-07-29 19:34:00 37 Michelle [facility] Respiratory rate 2023-07-29 19:34:00 18 /min [facility] Body height 2023-07-29 19:34:00 190.5 cm [facility] Body weight 2023-07-29 19:34:00 127.234 kg [facility] BMI 2023-07-29 19:34:00 35.06 kg/m2 [facility] Oxygen saturation in Arterial blood by Pulse oximetry 2023-07-29 19:34:00 94 /min [facility] Systolic blood pressure 2023-07-29 19:30:00 139 mm[Hg] [facility] Diastolic blood pressure 2023-07-29 19:30:00 69 mm[Hg] [facility] Heart rate 2023-07-29 19:29:00 71 /min Unive [facility] Body temperature 2023-07-29 19:29:00 37 Michelle [facility] Respiratory rate 2023-07-29 19:29:00 18 /min [facility] Body height 2023-07-29 19:29:00 190.5 cm [facility] Body weight 2023-07-29 19:29:00 127.234 kg [facility] BMI 2023-07-29 19:29:00 35.06 kg/m2 [facility] Oxygen saturation in Arterial blood by Pulse oximetry 2023-07-29 19:29:00 94 /min [facility] Systolic blood pressure 2023-02-26 18:51:00 140 mm[Hg] [facility] Diastolic blood pressure 2023-02-26 18:51:00 72 mm[Hg] [facility] Heart rate 2023-02-26 18:48:00 80 /min Unive [facility] Body temperature 2023-02-26 18:48:00 36.5 Michelle [facility] Respiratory rate 2023-02-26 18:48:00 18 /min [facility] Body height 2023-02-26 18:48:00 185.4 cm [facility] Body weight 2023-02-26 18:48:00 125.737 kg [facility] BMI 2023-02-26 18:48:00 36.57 kg/m2 [facility] Oxygen saturation in Arterial blood by Pulse oximetry 2023-02-26 18:48:00 93 /min [facility] Systolic blood pressure 2022-08-27 15:14:00 151 mm[Hg] [...] [facility]bold BMI 2021-07-03 13:07:00 34.00 kg/m2 Prema ey [facility] Oxygen saturation in Arterial blood by Pulse oximetry 2021-07-03 13:07:00 96 /min Yessica Tobarybo ld Procedures Procedure Date / Time Performed Performing Clinician Source POCT HEMOGLOBIN A1C TEST 2023-07-29 00:00:00 Jose Holloway [facility] MICROALBUMIN URINE 2023-02-28 12:54:00 Chapis Holloway [facility] FREE T4 2023-02-28 12:52:00 [facility] HORMONE 2023-02-28 12:52:00 Jose Holloway [facility] COMP. METABOLIC PANEL ([id number]) 2023-02-28 12:52:00 Jose Holloway [facility] LIPID PANEL ([id number])(TOTAL CHOLESTEROL, TRIGLYCERIDES, HDL) 2023-02-28 12:52:00 Jose Holloway [facility] CBC WITH DIFF 2023-02-28 12:52:00 [facility] GLYCOSYLATED HEMOGLOBIN (A1C) 2023-02-28 12:52:00 Jose Holloway [facility] FREE T3 2023-02-28 12:52:00 Jose Holloway Un [facility] ASSIGNMENT OF BENEFITS 2023-02-26 18:32:23 Docto r Unassigned, [place] [facility] Encounters Start Date/Time End Date/Time Encounter Type Admission Type Attending Clinicians Care Facility Care Department Encounter ID Source 2023-11-27 09:30:00 2023-11-27 09:30:00 Outpatient R JOSE HOLLOWAY [facility] [id number] [facility] 2023-11-11 08:00:00 2023-11-11 08:43:27 Outpatient R JOSE HOLLOWAY [facility] [id number] [facility] 2023-11-11 08:00:00 2023-11-11 08:15:00 Hand Router Operator Visit 2, [facility] Jose Holloway [facility] [id number] [facility] 2023-07-29 13:30:00 2023-07-29 14:34:22 Office Visit Jose Holloway [facility] [id number] [facility] 2023-07-29 13:30:00 2023-07-29 14:34:22 Outpatient R JOSE HOLLOWAY [facility] [id number] [facility] 2023-07-29 11:30:00 2023-07-29 14:32:28 Office Visit Jose Holloway [facility] [id number] [facility] 2023-07-11 00:00:00 2023-07-11 00:00:00 Outpatient CHEN MILES [id number] Yessica Dumont 2023-02-28 08:00:00 2023-02-28 08:15:00 Hand Router Operator Visit 2, Adc Lab Jose Holloway [facility] [id number] [facility] 2023-02-28 08:00:00 2023-02-28 08:00:00 Outpatient R JOSE HOLLOWAY [facility] [id number] [facility] 2023-02-26 14:00:00 2023-02-26 14:53:14 Outpatient R JOSE HOLLOWAY [facility] [id number] [facility] 2023-02-26 14:00:00 2023-02-26 14:53:14 Office Visit Jose Holloway [facility] DANIA WRIGHT [id number] 350.1.13.10 [id number] [id number] [facility] 2023-02-26 00:00:00 2023-02-26 00:00:00 Orders Only Doctor Unassigned, [place] [facility] 1.2.840.114 350.1.13.10 4.2.7.2.686 [id number] [facility] 2022-12-13 00:00:00 2022-12-13 00:00:00 Outpatient PRECHEN CASILLAS [id number] Yessica Dumont 2022-12-10 00:00:00 2022-12-10 00:00:00 Outpatient MAULIK PRESTON [id number] Yessica Dumont 2022-11-26 08:00:00 2022-11-26 08:00:00 Outpatient MAULIK PRESTON [id number] Yessica Dumont 2022-09-23 00:00:00 2022-09-23 00:00:00 Outpatient MAULIK PRESTON [id number] Yessica Dumont 2022-09-07 00:00:00 2022-09-07 00:00:00 Outpatient CHEN MILES [id number] Yessica Dumont 2022-09-05 00:00:00 2022-09-05 00:00:00 Outpatient PREZACHEN Garcia [id number] Yessica Dumont 2022-08-30 00:00:00 2022-08-30 00:00:00 Outpatient MAULIK PRESTON [id number] Yessica Dumont 2022-08-27 10:15:00 2022-08-27 10:15:00 Outpatient LABMiri SARMIENTO [id number] Yessica Dumont 2022-08-27 09:00:00 2022-08-27 09:00:00 Outpatient MAULIK PRESTON YESSICA [id number] Yessica Dumont 2022-04-04 10:30:00 2022-04-04 10:30:00 Telemedici ne RACHEL FINNEGAN 1.2.840.114 350.1.13.13 [id number] [id number] Yessica Dumont 2022-04-04 00:00:00 2022-04-04 00:00:00 Outpatient RACHEL FINNEGAN YESSICA [id number] Yessica Dumont 2021-07-03 08:50:00 2021-07-03 08:50:00 Outpatient LAB90 YESSICA SAMSEY [id number] Yessica Dumont 2021-07-03 08:01:27 2021-07-03 08:31:27 Office Visit Madiha Finneganjennifer Mejía Geoff Costa 1.2.840.114 350.1.13.13 [id number] [id number] [facility] 2020-11-12 13:55:00 2020-11-12 13:55:00 Outpatient ARIEL WILLS [facility] [id number] [facility] 2020-10-15 14:00:00 2020-10-15 14:00:00 Outpatient ARIEL WILLS [facility] [id number] [facility] 2020-08-07 10:20:00 2020-08-07 10:20:00 Outpatient BEULAH FISHER [facility] [id number] [facility] Results Test Description Test Time Test Comments Results Result [facility] [id number] 19:56:00* Test Item Value Reference Range Interpretation Comme nts POCT HBA1C (test code = 4548-4) 10.3 % 4-6 A Lab Interpretation (test cod e = 95101-0) Abnormal [facility] Notes Date/Time Note Provider Source 2023-11-11 08:00:00 UcaomIXtuT08asTnzlcw [id number]:00:00F ormatting of this note is different from the original.Images from the original note were not included.Venipuncture collection performed by clean technique on the right anticubitus. Total of 1 attempts were made. Slight pressure and a bandage/dressing were applied to the site(s). The patient experienced no complications. The following specimens were processed according to instructions and sent to [facility] laboratories per lab order on 11/11/2023:LT BLUESST 2REDLAV 2PPTDK GREEN (LiHep)DK GREEN (SodH)GRAYDK BLUE (K2)DK BLUE (S)ACDBlood CultureNIPT/NTD [id number] [id number]:21:06Nurse [id number] 9|[id number] for patient [id number] NoteLNNARRATIVEFormatted C-CDA narrative text[address] Ie[id number] [id number]:21:061.2.840 .399597.1.72.3.15|1.2.840.852366.1.13.104. [id number] [facility]"
--- NOTE | 2023-11-14 13:51 | EDPHYS ---
Physician Documentation [facility] Name: Kamlesh Cedeño Age: 68 yrs Sex: Male : 1955 Arrival Date: 11/14/2023 Time: 13:26 Bed IW7 Private MD: ED Physician Parish Turk HPI: 11/13 13:50 This 68 yrs old Male presents to ER via Ambulatory with complaints of Suture ec2 Removal. 13:50 Patient arrives today for evaluation of his sutures. States he had them placed ec2 approximately 2 weeks ago and sustained a laceration to the right hand, ultimately had 3 sutures placed. No issues or concerns.. Historical: - Allergies: 13:45 No Known Allergies; aa5 - PMHx: 13:44 a fib (Hypertension); Diabetes - NIDDM; Hypertension; aa5 - Immunization history:: Last tetanus immunization: < 5 years ago. - Social history:: Smoking status: Patient reports the use of cigarette tobacco products, chewing tobacco. ROS: 13:50 Constitutional: as per hpi ec2 Exam: 13:50 Constitutional: GEN: NAD Head: atraumatic Eyes: EOMI Ears: External ears are ec2 normal. CV: regular rate LUNGS: no respiratory distress ABD: non-distended SKIN: no evidence of rashes, well-appearing wound, sutures x 3 noted, no discharge, no erythema, no warmth MSK: no evidence of trauma NEURO: moves all extremities equally Vital Signs: 13:43 BP 146 / 62; Pulse 64; Resp 19 S; Temp 98.3(TE); Pulse Ox 98% on R/A; aa5 Procedures: 13:50 Suture/Staple removal: Removed 3 sutures, from right hand, site appears well healed, ec2 Patient tolerated well. MDM: 13:50 Patient medically screened. ec2 13:50 Data reviewed: vital signs. ED course: Patient arrives today for suture removal. ec2 Examination remarkable for well-appearing nontoxic dividual is otherwise in no acute distress with a well-appearing wound. I removed the sutures, will discharge home. Return precautions given.. Administered Medications: No medications were administered Disposition Summary: 11/14/23 13:50 Discharge Ordered Notes: Location: Home ec2 Condition: Stable ec2 Diagnosis - Encounter for removal of sutures ec2 Followup: ec2 - With: Private Physician - When: - Reason: Re-evaluation by your physician Discharge Instructions: - Discharge Summary Sheet ec2 - Suture Removal, Care After ec2 Forms: - Medication Reconciliation Form ec2 - Thank You Letter ec2 - Antibiotic Education ec2 - Prescription Opioid Use ec2 - Patient Portal Instructions ec2 - Leadership Thank You Letter ec2 Signatures: Pattie Hannha RN RN aa5 Parish Turk MD MD ec2
--- NOTE | 2023-11-14 13:51 | ER ---
Nurse's Notes [facility] Name: Kamlesh Cedeño Age: 68 yrs Sex: Male : 1955 Arrival Date: 11/14/2023 Time: 13:26 Bed IW7 Private MD: Diagnosis: Encounter for removal of sutures Presentation: 11/13 13:43 Chief complaint: Patient states: need for sutures to be removed from right hand. aa5 Coronavirus screen: At this time, the client does not indicate any symptoms associated with coronavirus-19. Ebola Screen: Patient denies travel to an Ebola-affected area in the 21 days before illness onset. Initial Sepsis Screen: Does the patient meet any 2 criteria? No. Patient's initial sepsis screen is negative. Does the patient have a suspected source of infection? No. Patient's initial sepsis screen is negative. Risk Assessment: Do you want to hurt yourself or someone else? Patient reports no desire to harm self or others. Onset of symptoms was November 14, 2023. 13:43 Method Of Arrival: Ambulatory aa5 13:43 Acuity: QUENTIN 4 aa5 Triage Assessment: 13:45 General: Appears comfortable, Behavior is calm, cooperative. Pain: Complains of pain in aa5 right hand. EENT: No signs and/or symptoms were reported regarding the EENT system. Neuro: Level of Consciousness is awake, alert, obeys commands, Oriented to person, place, time, situation. Cardiovascular: Patient's skin is warm and dry. Respiratory: Airway is patent Respiratory effort is even, unlabored, Respiratory pattern is regular, symmetrical. GI: No signs and/or symptoms were reported involving the gastrointestinal system. : No signs and/or symptoms were reported regarding the genitourinary system. Derm: Skin is pink, warm \T\ dry. Sutures noted to right hand. Musculoskeletal: Range of motion: intact in all extremities. Historical: - Allergies: 13:45 No Known Allergies; aa5 - PMHx: 13:44 a fib (Hypertension); Diabetes - NIDDM; Hypertension; aa5 - Immunization history:: Last tetanus immunization: < 5 years ago. - Social history:: Smoking status: Patient reports the use of cigarette tobacco products, chewing tobacco. Screenin:45 [facility] ED Fall Risk Assessment (Adult) History of falling in the last 3 months, aa5 including since admission No falls in past 3 months (0 pts) Confusion or Disorientation No (0 pts) Intoxicated or Sedated No (0 pts) Impaired Gait No (0 pts) Mobility Assist Device Used No (0 pt) Altered Elimination No (0 pt) Score/Fall Risk Level 0 - 2 = Low Risk Oriented to surroundings, Maintained a safe environment, Educated pt \T\ family on fall prevention, incl call for assistance when getting out of bed. Abuse screen: Denies threats or abuse. Nutritional screening: No deficits noted. Tuberculosis screening: No symptoms or risk factors identified. Assessment: 13:45 Reassessment: see triage assessment. . aa5 13:50 Reassessment: Patient is alert, oriented x 3, equal unlabored respirations, skin aa5 warm/dry/pink. Vital Signs: 13:43 BP 146 / 62; Pulse 64; Resp 19 S; Temp 98.3(TE); Pulse Ox 98% on R/A; aa5 ED Course: 13:29 Patient arrived in ED. mg5 13:33 Parish Turk MD is Attending Physician. ec2 13:43 Arm band placed on. aa5 13:43 Patient has correct armband on for positive identification. aa5 13:44 Triage completed. aa5 13:45 Recheck. Removal of Removed sutures from right hand. Completed by Dr. Turk. Suture aa5 site is well healed Patient tolerated well. 13:50 No provider procedures requiring assistance completed. Patient did not have IV access aa5 during this emergency room visit. 13:53 Pattie Hannah RN is Primary Nurse. aa5 Administered Medications: No medications were administered Medication: 13:50 VIS not applicable for this client. aa5 Outcome: 13:50 Discharge ordered by . ec2 13:50 Discharged to home ambulatory, aa5 13:50 Condition: good 13:50 Discharge instructions given to patient, Instructed on discharge instructions, follow up and referral plans. Demonstrated understanding of instructions, follow-up care, 13:53 Patient left the ED. aa5 Signatures: Pattie Hannah, ROSE RN tash5 Carolina Garcia mg5 Parish Turk MD MD ec2
[2023-11-14 14:30] VITALS: BP 146/62; TEMP 98.3; O2SAT 98
== END ==
LOC: ER 13:26
DX: Z48.02 Encounter for removal of sutures (principal)
CPT/HCPCS: 99283